=== PATIENT | male | born 1965 | race Caucasian/White ===

== ENCOUNTER → 2019-03-23 08:59 | Outpatient (CLI) | payer BC ==
--- NOTE | 2019-03-25 13:29 | ST ---
PATIENT:SHAMIR OLIVAREZ MEDICAL RECORD: [id number] SEX: M LOCATION:[facility] ORDER #: ADMISSION DATE: 03/23/19 AGE OF PATIENT: 53 REFERRING PHYSICIAN: INTERPRETING PHYSICIAN: KE MCCLELLAN MD DATE OF SERVICE: 03/23/2019 PROCEDURE: Nuclear stress test. INDICATIONS: Angina, shortness of breath, hyperlipidemia, and diabetes. He was exercised on standard Galen protocol for 8 minutes 45 seconds achieving 85% max target heart rate response with 33 mCi of sestamibi injected at peak stress, 11 mCi used previously for rest images. FINDINGS: Gated SPECT reveals preserved ejection fraction at 62% with good wall motion and thickening and brightening throughout all segments. SPECT imaging Cardiolite was used as myocardial fusion agent. There is homogeneous uptake throughout all segments at rest and stress with no evidence of inducible ischemia or previous infarction. OVERALL IMPRESSION: 1. This is a normal nuclear stress test with no evidence of inducible ischemia or previous infarction. 2. Gated SPECT reveals a preserved ejection fraction at 62%. In this patient with ongoing symptomatology, the current scan does not suggest the presence of hemodynamically significant coronary artery disease. Evaluate noncardiac etiology of chest pain. TRANSINT:[id number] Voice Confirmation ID: [id number] DOCUMENT ID: [id number] KE MCCLELLAN MD at 1329 CC: CINDY LOCKHART MD [id number] DICTATION DATE: 03/23/19 1649 LEARNING AND DEVELOPMENT ASSOCIATE: 03/24/19 0800 DEP CLI 03/23/19 [facility] [address] [place] [address]
== END | disposition home or self-care (01) ==
LOC: D.HCCARDIO 08:59
PROVIDERS: ATTEND Internal Medicine Interventional Cardiology
DX: I20.9 Angina pectoris, unspecified (principal)

== ENCOUNTER → 2019-03-30 12:45 | Outpatient (CLI) | payer BC ==
--- NOTE | 2019-04-05 11:41 | EC ---
PATIENT:SHAMIR OLIVAREZ DATE OF SERVICE: 03/30/19 SEX: M MEDICAL RECORD: [id number] DATE OF : 69 LOCATION:[facility] AGE OF PATIENT: 53 ADMISSION DATE: 03/30/19 REFERRING PHYSICIAN: INTERPRETING PHYSICIAN: KE ANDRES MD ECHOCARDIOGRAM REPORT ECHO CHARGES 4 ECHO COMPLETE Date: 03/30/19 CLINICAL DIAGNOSIS: CHEST PAIN ECHOCARDIOGRAPHIC MEASUREMENTS (adult normal given) AC root (d.<3.7cm) 3.4 cm LV Septum d (<1.2 cm> 1.5 cm Valve Excursion 1.5 cm LV Septum (systole) 1.9 cm Left Atria (s.<4.0cm> 3.0 cm LVPW d(<1.2cm) 1.8 cm RV (d.<2.3cm) 3.7 cm LVPW (sytole) 2.2 cm LV diastole(<5.6CM) 3.5 cm MV E-F(>70mm/sec) cm LV systole 2.1 cm LVOT Diameter 1.9 cm MV exc.(>10mm) 1.8 cm Est.ejection fraction (50-75%) % DOPPLER: LVIT cm/sec A 67.0 cm/sec E 79.0 cm/sec LA cm/sec RVSP 23 mmHg LVOT 94 cm/sec AOP1/2T m/s Asc. Ao 141 cm/sec RVOT 95 cm/sec RA cm/sec PA 143 cm/sec AV Gradient Peak 8.26 mmHg AV Mean 4.80 mmHg AV Area 1.8 cm MV Gradient Peak 4.61 mmHg MV Mean 1.46 mmHg MV Area cm COMMENTS: Preschool Assistant Principal: Cookie BRADSHAW Silviculture Professor: 1 Dr. Andres TAPE# PACS Pericardial Effusion N DATE OF SERVICE: ECHOCARDIOGRAM FINDINGS: 1. Left ventricular chamber size is within normal limits. Left ventricular systolic function is normal. Overall ejection fraction estimated at 60%. 2. Left atrium, right atrium, and right ventricle chamber sizes are within normal limits. 3. Valvular structures have normal structure and motion. ECHOCARDIOGRAM REPORT [id number] SHAMIR OLIVAREZ 4. Doppler interrogation reveals mild tricuspid regurgitation, no other valvular insufficiency or stenosis. 5. No evidence of pericardial effusion or left ventricular thrombus. TRANSINT:[id number] Voice Confirmation ID: [id number] DOCUMENT ID: [id number] KE ANDRES MD at 1141 CC: [id number] DICTATION DATE: 04/01/19 1053 HEAD HOST/HOSTESS: 04/01/19 1130 DEP CLI 03/30/19 [id number] [place] [address]
== END | disposition home or self-care (01) ==
LOC: D.HCCECHO 12:45
PROVIDERS: ATTEND Internal Medicine Interventional Cardiology
DX: R07.9 Chest pain, unspecified (principal)